=== PATIENT | male | born 1965 | race Caucasian/White ===

== ENCOUNTER 2021-01-17 10:30 | Emergency (ER) | payer OTHER, BC ==
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
== END 2021-01-17 12:43 | disposition home or self-care (01) ==
LOC: DL.ED 10:30
DX: S09.90XA Unspecified injury of head, initial encounter (principal); S16.1XXA Strain of muscle, fascia and tendon at neck level, initial encounter; S20.219A Contusion of unspecified front wall of thorax, initial encounter; S01.552A Open bite of oral cavity, initial encounter; I10 Essential (primary) hypertension; Z79.899 Other long term (current) drug therapy; V19.9XXA Pedal cyclist (driver) (passenger) injured in unspecified traffic accident, initial encounter; Y93.31 Activity, mountain climbing, rock climbing and wall climbing; Y92.828 Other wilderness area as the place of occurrence of the external cause
CPT/HCPCS: 70450; 71120; 72125; 99284-25

== ENCOUNTER 2025-02-06 13:28 | Emergency (ER) | payer BC ==
[2025-02-06] MEDS: Diphtheria,Pertussis(Acell),Tetanus Vaccine 0.5 ML Syringe IM ONE (14:30)
[2025-02-06] MEDS: Bacitracin Oint 1 GM U/D Packet TOP ONE (14:32)
== END 2025-02-06 15:45 | disposition home or self-care (01) ==
LOC: DL.ED 13:28
DX: S61.011A Laceration without foreign body of right thumb without damage to nail, initial encounter (principal); Z79.899 Other long term (current) drug therapy; Z23 Encounter for immunization; I10 Essential (primary) hypertension; W26.8XXA Contact with other sharp object(s), not elsewhere classified, initial encounter; Y93.89 Activity, other specified
CPT/HCPCS: 12002; 90471; 90715; 99282; 99282-25; A9270-GY